=== PATIENT | male | born 1990 | race Caucasian/White ===

== ENCOUNTER 2020-12-13 08:18 | Emergency (ER) | payer OTHER, BC ==
[~2020-12-13] VITALS: Ht 177.8 cm; Wt 95.2 kg
[2020-12-13] MEDS ORDERED: Prednisone20 MG PO (08:40)
== END 2020-12-13 09:24 | disposition home or self-care (01) ==
LOC: ER 08:18
DX: L23.7 Allergic contact dermatitis due to plants, except food (principal); F17.220 Nicotine dependence, chewing tobacco, uncomplicated
CPT/HCPCS: 99282